=== PATIENT | male | born 1995 | race Native Hawaiian/Other Pacific Islander ===

== ENCOUNTER 2016-11-07 22:46 | Emergency (ER) | payer OTHER ==
[~2016-11-07] VITALS: Ht 172.7 cm; Wt 85.0 kg
[2016-11-07 22:48] VITALS: BP 129/69; PULSE 87; RESP 16; TEMP 98.4; O2SAT 99
--- NOTE | 2016-11-07 23:32 | PD ---
HPI Chief Complaint: Cold / Flu Symptoms Time Seen by Provider: 22:24 Travel History International Travel<30 days: Yes Contact w/Intl Traveler<30days: Yes Name of Country Traveled to: [facility] Traveled to known affect area: No History of Present Illness HPI This is a 21-year-old male with no significant past medical history presents for evaluation of sore throat. Symptoms started yesterday. It hurts to swallow. He notes mild nasal congestion as well. No fevers or chills, rash, nausea or vomiting, cough. He reports that he had a sore throat 2 months ago which was treated with antibiotics and resolved. He reports that he traveled to [facility] to visit family, returned two days ago, here for school. He has no other complaints at this time. [facility] Social History Alcohol Use: No Tobacco Use: No Allergies-Medications (Allergen,Severity, Reaction): Coded Allergies: No Known Allergies (Unverified , 11/08/16) Reported Meds & Prescriptions Reported Meds & Active Scripts Active No Active Prescriptions or Reported Medications Review of Systems Except as stated in HPI: all other systems reviewed are Neg Physical Exam Narrative GENERAL: This is a well-developed well-nourished male in no acute distress. Voice is not hoarse or muffled, no stridor or drooling. SKIN: Warm and dry. HEAD: Atraumatic. Normocephalic. EYES: Pupils equal and round. No scleral icterus. No injection or drainage. ENT: No nasal bleeding or discharge. Mucous membranes pink and moist. No oral pharyngeal erythema, exudate, uvula midline with no mass effect. NECK: Trachea midline. No JVD. No lymphadenopathy. Neck supple full range of motion. CARDIOVASCULAR: Regular rate and rhythm. No murmur appreciated. RESPIRATORY: No accessory muscle use. Clear to auscultation. Breath sounds equal bilaterally. Data Data Last Documented VS Vital Signs Date Time Temp Pulse Resp B/P Pulse Ox O2 Delivery O2 Flow Rate FiO2 11/08/16 00:10 87 16 99 Room Air 11/07/16 22:48 98.4 129/69 Orders Group A Rapid Strep Screen (11/07/16 23:28) Strep Culture (Group A) (11/07/16 23:35) MDM Medical Decision Making Medical Screen Exam Complete: Yes Emergency Medical Condition: Yes Medical Record Reviewed: Yes Differential Diagnosis Pharyngitis, tonsillitis, peritonsillar abscess, infectious mononucleosis, herpangina, epiglottitis, retropharyngeal abscess, [place] respiratory syndrome Narrative Course 21-year-old male with 2 days of sore throat examination is unremarkable. A rapid strep sent was obtained and was negative. The patient appears to have a viral pharyngitis. Supportive care is been recommended and he is stable for discharge. Diagnosis Primary Impression: Pharyngitis Qualified Code: J02.9 - Pharyngitis, unspecified etiology Additional Instructions: Take [id number] Tylenol or ibuprofen for discomfort. Stay well hydrated and well-nourished, get plenty of rest. Follow-up with primary care physician as needed, return for any emergent medical conditions. Med/Other Pt SpecificInfo: No Change to Meds Scripts No Active Prescriptions or Reported Meds Disposition: 01 DISCHARGE HOME Condition: Stable Obed Corbett Nov 07, 2016 23:32
== END 2016-11-08 01:30 | disposition home or self-care (01) ==
LOC: NEPB 22:46
DX: J02.9 Acute pharyngitis, unspecified (principal)
CPT/HCPCS: 87081; 87880; 99283